=== PATIENT | female | born 1950 | race Caucasian/White ===

== ENCOUNTER 2021-09-02 17:03 | Emergency (ER) | payer OTHER, MEDICAID ==
[~2021-09-02] VITALS: Ht 139.7 cm; Wt 66.2 kg
[2021-09-02 17:10] VITALS: BP 151/88
--- NOTE | 2021-09-02 17:37 | NUR ---
PT TAKEN TO BED 3 VIA WHEELCHAIR, STAND PIVOT TO BED
--- NOTE | 2021-09-02 19:12 | NUR ---
70 y/o female, pt presents to er with c/o headache after she states he fell last night while taking the trash out. pt states she fell and hit her right eye, c/o pain around right eye radiates to forehead with bruising. denies loc or syncope. pt also c/o neck and back pain 09/18. denies nausea, vomiting, diarrhea. lungs clear bl, heart rate even and regular. pt denies any fever, cp, sob, or cough at this time. patient positioned for comfort. hob elevated. bed down. ermd made aware of pt. pmh: denies nka
--- NOTE | 2021-09-02 19:23 | NUR ---
Pt report given to Katelyn EISENBERG. Transfer of care at this time.
[2021-09-02] MEDS ORDERED: ACET-9882 PO (20:35)
--- NOTE | 2021-09-02 21:25 | NUR ---
AWAKE, AMBULATED TO BR WITH STEADY GAIT
[2021-09-02 21:45] VITALS: BP 151/88
--- NOTE | 2021-09-02 21:45 | NUR ---
Patient discharged with v/s stable. Written and verbal after care instructions given and explained. Patient verbalized understanding. Ambulatory with steady gait. All questions addressed prior to discharge. Advised to follow up with PMD.
== END 2021-09-02 21:45 | disposition home or self-care (01) ==
LOC: MED 17:03
DX: S09.90XA Unspecified injury of head, initial encounter (principal); H05.221 Edema of right orbit; W19.XXXA Unspecified fall, initial encounter; Y93.89 Activity, other specified; Y92.89 Other specified places as the place of occurrence of the external cause; Y99.8 Other external cause status
CPT/HCPCS: 70450; 73030; 99284; Q0092

== ENCOUNTER 2023-09-23 13:59 | Inpatient (IN) | payer OTHER, MEDICAID ==
[~2023-09-23] VITALS: Ht 152.4 cm; Wt 59.0 kg
[~2023-09-23 13:59] MED LIST: ACET-9882 PO
--- NOTE | 2023-09-23 14:05 | NUR ---
PATIENT BIBA TO BED 1.
[2023-09-23 14:07] VITALS: BP 110/73; PULSE 73; RESP 26; TEMP 97.4; O2SAT 98
[2023-09-23] MEDS ORDERED: methylPREDNISolone SS 125 MG in WATER STERILE 2 ML IV ONE (15:35)
[2023-09-23 15:42] LABS: BASOPHILS % (AUTO) 0.6 % (0.0-2.0); EOSINOPHILS # (AUTO) 0.2 K/uL (0-0.4); EOSINOPHILS % (AUTO) 4.6 % (0.0-4.0); HEMATOCRIT 42.8 % (36-48); HEMOGLOBIN 14.4 g/dL (12.0-16.0); LYMPHOCYTES # (AUTO) 1.2 K/uL (2.5-16.5); LYMPHOCYTES % (AUTO) 32.1 % (20.5-51.1); MEAN CORPUSCULAR HEMOGLOBIN 31 pg (27-31); MEAN CORPUSCULAR HGB CONC 34 g/dL (33-37); MEAN CORPUSCULAR VOLUME 91.8 fL (80-94); MONOCYTES # (AUTO) 0.5 K/uL (0.8-1.0); MONOCYTES % (AUTO) 12.2 % (1.7-9.3); NEUTROPHILS % (AUTO) 50.5 % (42.2-75.2); PLATELET COUNT (AUTO) 167 K/uL (140-450); RED BLOOD CELL COUNT(AUTO) 4.66 MIL/uL (4.20-5.40); RED CELL DISTRIBUTION WIDTH 13.6 % (11.6-13.7); WHITE BLOOD COUNT (AUTO) 3.9 K/uL (4.8-10.8)
[2023-09-23] MEDS: methylPREDNISolone SS 125 MG/2 ML VIAL IVP SCH (15:52)
[2023-09-23] MEDS: ALBUTEROL 0.083% 2.5 MG/3 ML NEBU INH ONE (15:55)
[2023-09-23] MEDS: IPRATROPIUM 0.02% 0.5 MG/2.5 ML NEBU INH ONE (15:55)
[2023-09-23 15:56] VITALS: PULSE 67; RESP 20; O2SAT 96
[2023-09-23 15:56] LABS: ANION GAP 9.9 (8-16); CALCIUM 8.6 mg/dL (8.5-10.1); CARBON DIOXIDE 33.7 mmol/L (21-32); CHLORIDE 92 mmol/L (98-107); CREATININE 0.8 mg/dL (0.6-1.3); GLUCOSE 107 mg/dL (74-106); SODIUM SERUM 133 mmol/L (136-145); UREA NITROGEN, BLOOD 10 mg/dL (7-18)
[2023-09-23 15:58] LABS: POTASSIUM 2.6 mmol/L (3.5-5.1)
[2023-09-23 16:04] LABS: INR 0.97 (0.8-1.2); PARTIAL THROMBOPLASTIN TIME 25.4 secs (22-35.6); PROTHROMBIN TIME 10.2 secs (10.8-13.4)
[2023-09-23] MEDS ORDERED: AZITHROMYCIN 500 MG INJ VIAL IV ONE (16:12)
[2023-09-23] MEDS ORDERED: cefTRIAXone 1,000 MG VIAL ONE (16:12)
[2023-09-23] MEDS: POTASSIUM CHLORIDE 10 MEQ TABER PO ONE (16:25)
[2023-09-23] MEDS: AZITHROMYCIN 500 MG in DEXTROSE 5% 250 ML IV ONE (16:39)
[2023-09-23] MEDS ORDERED: ZOLPIDEM 5 MG TAB PO PRN (18:10)
[2023-09-23] MEDS ORDERED: ACETAMINOPHEN 325 MG TAB PO PRN (18:10)
[2023-09-23] MEDS ORDERED: ALBUTEROL SULFATE/IPRATROPIU 3 ML SOL IH PRN (18:10)
[2023-09-23] MEDS ORDERED: LORazepam 1 MG TAB PO PRN (18:10)
[2023-09-23] MEDS ORDERED: ONDANSETRON 4 MG/2 ML VIAL IVP PRN (18:10)
[2023-09-23 19:55] VITALS: PULSE 75; RESP 18; O2SAT 95
[2023-09-23 20:30] VITALS: BP 115/65; PULSE 77; PULSE 80; RESP 18; TEMP 97.1; O2SAT 95; O2SAT 96
--- NOTE | 2023-09-23 20:30 | NUR ---
PATIENT ADMITTED FROM ED, ADMITTING DIAGNOSIS IS COPD, ON O2 @2LPM NC, DENIES SOB, PATIENT DENIES PAIN, VITALS TAKEN, MRSA SWAB DONE, SKIN CHECK DONE, SKIN IS INTACT. PATIENT CAME VIA GURNEY, ABLE TO AMBULATE TO THE BED, GAIT IS STEADY, FAMILY WITH PATIENT, PATIENT ORIENTED TO ROOM SETTING, CALL LIGHT WITHIN REACH.
--- NOTE | 2023-09-23 20:39 | NUR ---
Patient will be admitted to care of [facility]. Admited toTELE. Will go to [id number]. Belongings list completed. Report to JESSI EISENBERG.
--- NOTE | 2023-09-23 20:39 | NUR ---
Patient will be admitted to care of [facility]. Admited to TELE. Will go to room 104B. Belongings list completed. Report to SOURAV EISENBERG.
[2023-09-23] MEDS: methylPREDNISolone SS 40 MG/ML VIAL IVP SCH (21:21)
--- NOTE | 2023-09-23 21:21 | NUR ---
SCHEDULED MEDICATIONS GIVEN ORDERED.
--- NOTE | 2023-09-23 22:45 | NUR ---
PATIENT ASSISTED TO THE RESTROOM, ABLE TO AMBULATE, GAIT IS STEADY, NO S/S OF DISTRESS NOTED, PATIENT CHANGED INTO NEW GOWN, CALL LIGHT WITHIN REACH.
[2023-09-24] VITALS (10 sets, daily range): BP systolic 119–157; BP diastolic 63–77; PULSE 65–84; RESP 12–18; TEMP 97.3–97.8; O2SAT 95–98
--- NOTE | 2023-09-24 01:58 | NUR ---
PATIENT IS ASLEEP, VISIBLE CHEST RISE AND FALL, NO S/S OF DISTRESS NOTED, BED IN LOW AND LOCKED POSITION, CALL LIGHT WITHIN REACH.
[2023-09-24 07:25] LABS: HEMATOCRIT 43.1 % (36-48); HEMOGLOBIN 14.8 g/dL (12.0-16.0); LYMPHOCYTES # (AUTO) 0.8 K/uL (2.5-16.5); LYMPHOCYTES % (AUTO) 42.2 % (20.5-51.1); MEAN CORPUSCULAR HEMOGLOBIN 31 pg (27-31); MEAN CORPUSCULAR HGB CONC 34 g/dL (33-37); MEAN CORPUSCULAR VOLUME 90.1 fL (80-94); MONOCYTES % (AUTO) 2.5 % (1.7-9.3); NEUTROPHILS # (AUTO) 1.1 K/uL (1.8-7.7); NEUTROPHILS % (AUTO) 55.3 % (42.2-75.2); PLATELET COUNT (AUTO) 195 K/uL (140-450); RED BLOOD CELL COUNT(AUTO) 4.78 MIL/uL (4.20-5.40); RED CELL DISTRIBUTION WIDTH 13.7 % (11.6-13.7)
--- NOTE | 2023-09-24 07:25 | NUR ---
PATIENT IS AWAKE, NO S/S OF DISTRESS, PATIENT IS STABLE.
[2023-09-24 07:53] LABS: ALANINE AMINOTRANSFERASE 27 U/L (12-78); ALBUMIN 3.4 g/dL (3.4-5.0); ALKALINE PHOSPHATASE 82 U/L (50-136); ANION GAP 13.6 (8-16); ASPARTATE AMINOTRANSFERASE 26 U/L (15-37); CALCIUM 8.9 mg/dL (8.5-10.1); CARBON DIOXIDE 31.2 mmol/L (21-32); CHLORIDE 92 mmol/L (98-107); CREATININE 0.7 mg/dL (0.6-1.3); GLUCOSE 133 mg/dL (74-106); SODIUM SERUM 134 mmol/L (136-145); TOTAL BILIRUBIN 0.6 mg/dL (0.0-1.0); TOTAL PROTEIN, SERUM 6.9 g/dL (6.4-8.2); UREA NITROGEN, BLOOD 9 mg/dL (7-18)
[2023-09-24 07:56] LABS: POTASSIUM 2.8 mmol/L (3.5-5.1)
[2023-09-24 07:58] LABS: WHITE BLOOD COUNT (AUTO) 1.9 K/uL (4.8-10.8)
--- NOTE | 2023-09-24 08:03 | NUR ---
Reported potassium of 2.[address] Prajapati
--- NOTE | 2023-09-24 08:29 | NUR ---
0826: Dr davidson no new orderes currently
[2023-09-24] MEDS ORDERED: DOCUSATE SODIUM 100 MG GELCAP PO SCH (09:00)
[2023-09-24] MEDS: DOCUSATE 100 MG/10 ML UDC GT SCH (09:50)
[2023-09-24] MEDS: POTASSIUM CHLORIDE 40 MEQ, LIDOCAINE 1% 25 MG in NACL 0.9% 250 ML IV SCH (11:00)
--- NOTE | 2023-09-24 11:00 | NUR ---
PLACED PATIENT ON RA FROM 2LNC. SATURATION MAINTAINED AT 92-94% NO SOB NOTED WITH CLEAR BS JEN. WILL CONTINUE TO MONITOR.
--- NOTE | 2023-09-24 11:23 | NUR ---
REPORT GIVENT TO OL[facility] CARE OF PT TRANSFERRED
--- NOTE | 2023-09-24 11:26 | NUR ---
SW ASSESSMENT Addendum: 09/24/23 at 1126 by Joesph MURRIETA Amended: Links added.
--- NOTE | 2023-09-24 14:56 | NUR ---
P.T. NOTES P.T. JESSICA COMPLETED
[2023-09-24] MEDS: POTASSIUM CHLORIDE 10 MEQ TABER PO SCH (15:31)
[2023-09-24] MEDS: AZITHROMYCIN 250 MG TAB PO SCH (17:10)
[2023-09-24 19:05] LABS: ANION GAP 10.5 (8-16); CALCIUM 8.7 mg/dL (8.5-10.1); CARBON DIOXIDE 31.6 mmol/L (21-32); CHLORIDE 95 mmol/L (98-107); CREATININE 0.8 mg/dL (0.6-1.3); GLUCOSE 127 mg/dL (74-106); POTASSIUM 4.1 mmol/L (3.5-5.1); SODIUM SERUM 133 mmol/L (136-145); UREA NITROGEN, BLOOD 12 mg/dL (7-18)
--- NOTE | 2023-09-24 19:22 | NUR ---
Potassium reported to doctor Elvi,and he will discharge patient.
--- NOTE | 2023-09-24 19:24 | NUR ---
Report given to oncoming nurse for continuity of care.
--- NOTE | 2023-09-24 19:28 | NUR ---
PT ON 2L NC WITH SPO2 OF 97%. WEAN PT TO ROOM AIR WITH SPO2 95%. PT TOLERATING WELL. WILL CONTINUE PLAN OF CARE.
[2023-09-24] MEDS ORDERED: AZIT250T4 PO (19:34)
[2023-09-24] MEDS ORDERED: ALBU0.0912 IH (19:34)
[2023-09-24] MEDS ORDERED: METH4TAB1 PO (19:34)
--- NOTE | 2023-09-24 20:55 | NUR ---
PATIENT IS DISCHARGED, PATIENT IN STABLE CONDITION. DISCHARGE INSTRUCTIONS GIVEN TO PATIENT AND FAMILY. PATIENT WAS DISCHARGED WITH DAUGHTER JUAN R IN A PRIVATE VEHICLE.
== END 2023-09-24 20:45 | disposition home or self-care (01) | DRG 193 ==
LOC: MED 13:59 → MTU 18:09
PROVIDERS: ADMIT Student in an Organized Health Care Education/Training Program; ATTEND Student in an Organized Health Care Education/Training Program
DX: J15.9 Unspecified bacterial pneumonia (principal); J96.00 Acute respiratory failure, unspecified whether with hypoxia or hypercapnia; J45.901 Unspecified asthma with (acute) exacerbation; I10 Essential (primary) hypertension; E87.6 Hypokalemia; Z79.899 Other long term (current) drug therapy
CPT/HCPCS: 36415; 71045; 80048; 80053; 83880; 84484; 85025; 85610; 85730; 87040; 87081; 93005; 96374; 96375; 97112; 97116; 99291; J0456; J0696; J2001; J2919; J2920; J3480; J7030; J7613; J7644